=== PATIENT | male | born 1975 | race Caucasian/White ===

== ENCOUNTER 2018-06-09 06:49 | Emergency (ER) | payer MEDICAID ==
[~2018-06-09] VITALS: Ht 180.3 cm; Wt 81.8 kg
[2018-06-09 09:25] VITALS: BP 158/92
== END 2018-06-09 09:45 | disposition home or self-care (01) ==
LOC: EMS 06:51
DX: R21 Rash and other nonspecific skin eruption (principal); F15.90 Other stimulant use, unspecified, uncomplicated; F17.210 Nicotine dependence, cigarettes, uncomplicated
CPT/HCPCS: 99281

== ENCOUNTER 2023-11-26 23:13 | Emergency (ER) | payer MEDICAID ==
[~2023-11-26] VITALS: Ht 185.4 cm; Wt 100.0 kg
[2023-11-27] MEDS ORDERED: CEPH-558 PO (00:29)
[2023-11-27] MEDS ORDERED: SULF-261 PO (00:29)
[2023-11-27] MEDS ORDERED: CefTRIAXone SODIUM 1 GM/VIAL IM ONE (00:30)
[2023-11-27] MEDS ORDERED: LIDOCAINE/PF 1% 2 ML VIAL IM ONE (00:30)
[2023-11-27 00:55] VITALS: BP 135/88; PULSE 88; RESP 18; TEMP 98
== END 2023-11-27 01:02 | disposition home or self-care (01) ==
LOC: EMS 23:16
DX: H60.12 Cellulitis of left external ear (principal); F17.210 Nicotine dependence, cigarettes, uncomplicated; F15.90 Other stimulant use, unspecified, uncomplicated
CPT/HCPCS: 99283; 10060; 87205; 87070; 96372; J0696; J3490